=== PATIENT | female | born 1995 | race Caucasian/White ===

== ENCOUNTER 2020-07-30 13:38 | Observation (INO) ==
[2020-07-30 14:17] LABS: Basophils % 0.3 %; Eosinophils % 0.6 %; Hematocrit 40.4 % (35.3-44.9); Hemoglobin 14.8 g/dL (11.5-15.4); Immature Granulocytes % 0.3 % (0-4); Lymphocytes # 2.6 K/mcL (0.6-4.6); Lymphocytes % 35.7 %; Mean Corpuscular HGB Conc 36.6 g/dL (31.6-35.5); Mean Corpuscular Hemoglobin 31.5 pg (28.0-33.3); Mean Platelet Volume 9.5 fL (9.4-12.4); Monocytes # 0.6 K/mcL (0.0-1.3); Monocytes % 7.7 %; Platelet Count 314 K/mcL (140-400); Red Cell Distribution Width 11.6 % (11.5-14.5); Segmented Neutrophils % 55.4 %; White Blood Count 7.3 K/mcL (4.3-11.1)
[2020-07-30 14:24] LABS: Prothrombin Time 11.7 Seconds (9.4-12.1)
[2020-07-30 14:32] LABS: Alanine Aminotransferase 13 Units/L (7-52); Albumin/Globulin Ratio 1.2 (1.1-2.2); Alkaline Phosphatase 110 Units/L (34-104); Aspartate Amino Transferase 11 Units/L (13-39); BUN/Creatinine Ratio 19 (6-26); Bilirubin,Total 0.7 mg/dL (0.3-1.0); Blood Urea Nitrogen 13 mg/dL (6-20); Calcium 9.4 mg/dL (8.6-10.3); Carbon Dioxide 26 mEq/L (23-29); Chloride 96 mEq/L (98-107); Globulin 3.4 g/dL (2.4-3.5); Glucose 466 mg/dL (70-105); Osmolality,Calculated 299 (280-300); Sodium 134 mEq/L (136-145); Total Protein 7.4 g/dL (6.4-8.9); eGFR For African Americans > 60 (> 60); eGFR For Non-African Americans > 60 (> 60)
[2020-07-30 14:33] LABS: Bilirubin,Urine Negative (Negative); Blood,Urine Negative (Negative); Clarity,Urine Clear (Clear); Glucose,Urine (UA) >=1000 mg/dL (Normal); Ketones,Urine 15 mg/dL (Negative); Leukocyte Esterase,Urine Negative (Negative); Nitrite,Urine Negative (Negative); Protein,Urine Negative (Neg-Trace); Urobilinogen,Urine Normal (Normal)
[2020-07-30 14:36] LABS: Troponin I < 0.03 ng/mL (< 0.04)
[2020-07-30 14:40] LABS: Color,Urine Light-Yellow (Yellow)
[2020-07-30 14:49] LABS: Squamous Epithelial Cell,Urine Few per hpf (None-Few); WBC,Urine 0-3 per hpf (0-3)
[2020-07-30 15:30] LABS: VBG HCO3 27 mEq/L (21-27); VBG PCO2 41 mmHg (41-51); VBG PH 7.43 pH Units (7.32-7.42); VBG PO2 60 mmHg (25-50)
[2020-07-30] MEDS ORDERED: Insulin Regular, Human 100 UNIT/ML IV ONE (15:44)
[2020-07-30] MEDS: 0.9 % Sodium Chloride 1,000 ML IVC SCH ×3 (16:07→21:14)
[2020-07-30] MEDS ORDERED: Acetaminophen 325 MG TABLET PO PRN (16:28)
[2020-07-30] MEDS ORDERED: Ondansetron 4 MG/2 ML VIAL IVP PRN (16:28)
[2020-07-30] MEDS ORDERED: Naloxone 0.4 MG/ML INJ IVP PRN (16:28)
[2020-07-30] MEDS ORDERED: *HR* Dextrose 50 % in Water (Vial) 50 ML VIAL IVP PRN (16:32)
[2020-07-30] MEDS ORDERED: D5% in Water 1,000 ML IVC PRN (16:32)
[2020-07-30] MEDS ORDERED: Dextrose Gel 15 GM/37.5 ML TUBE PO PRN ×2 (16:32)
[2020-07-30] MEDS ORDERED: Perflutren Lipid Microsphere 1.3 ML in 0.9 % Sodium Chloride 8.7 ML IVP PRN (16:33)
[2020-07-30] MEDS: Albuterol 2.5 MG/3 ML NEBULIZER IH SCH ×2 (19:55→23:02)
[2020-07-30] MEDS ORDERED: Insulin LISPRO 300 UNITS/3 ML VIAL SQ SCH (21:00)
[2020-07-30] MEDS: Insulin DETEMIR 100 UNIT/ML X5UNITS SQ SCH (21:14)
[2020-07-30 21:25] LABS: Estimated Average Glucose 278 mg/dl
[2020-07-31] MEDS: Albuterol 2.5 MG/3 ML NEBULIZER IH SCH ×4 (04:12→15:54)
[2020-07-31 04:24] LABS: Basophils % 0.3 %; Eosinophils # 0.1 K/mcL (0.0-0.6); Eosinophils % 0.7 %; Hematocrit 34.3 % (35.3-44.9); Hemoglobin 12.4 g/dL (11.5-15.4); Immature Granulocytes % 0.3 % (0-4); Lymphocytes # 3.2 K/mcL (0.6-4.6); Mean Corpuscular HGB Conc 36.2 g/dL (31.6-35.5); Mean Corpuscular Hemoglobin 31.8 pg (28.0-33.3); Mean Corpuscular Volume 87.9 fL (83.0-100.0); Mean Platelet Volume 9.5 fL (9.4-12.4); Monocytes # 0.5 K/mcL (0.0-1.3); Monocytes % 7.2 %; Neutrophils # 3.6 K/mcL (1.6-8.9); Platelet Count 275 K/mcL (140-400); Red Cell Distribution Width 11.9 % (11.5-14.5); Segmented Neutrophils % 48.5 %; White Blood Count 7.5 K/mcL (4.3-11.1)
[2020-07-31 04:39] LABS: Troponin I < 0.03 ng/mL (< 0.04)
[2020-07-31 06:06] LABS: BUN/Creatinine Ratio 17 (6-26); Blood Urea Nitrogen 12 mg/dL (6-20); Calcium 8.1 mg/dL (8.6-10.3); Carbon Dioxide 25 mEq/L (23-29); Chloride 103 mEq/L (98-107); Cholesterol 204 mg/dL (< 200); Glucose 293 mg/dL (70-105); HDL Cholesterol 29 mg/dL (40-59); LDL Cholesterol,Calculated 115 mg/dL (< 100); Magnesium 1.7 mg/dL (1.6-2.6); Osmolality,Calculated 295 (280-300); Potassium 3.5 mEq/L (3.5-5.1); Sodium 137 mEq/L (136-145); Triglycerides 300 mg/dL (< 150); eGFR For African Americans > 60 (> 60); eGFR For Non-African Americans > 60 (> 60)
[2020-07-31 07:18] VITALS: BP 105/68
[2020-07-31] MEDS: 0.9 % Sodium Chloride 1,000 ML IVC SCH (08:27)
[2020-07-31] MEDS: Insulin LISPRO 300 UNITS/3 ML VIAL SQ SCH ×3 (08:27→16:49)
[2020-07-31] MEDS: Insulin DETEMIR 100 UNIT/ML X5UNITS SQ SCH (08:28)
[2020-07-31] MEDS ORDERED: FLUoxetine HCl 10 MG CAPSULE PO SCH (09:00)
[2020-07-31] MEDS ORDERED: Nitroglycerin 0.4 MG TAB.SUBL SL PRN (10:03)
[2020-07-31] MEDS ORDERED: Aspirin Enteric Coated 81 MG Tablet PO SCH (10:15)
[2020-07-31] MEDS ORDERED: Insulin LISPRO 300 UNITS/3 ML VIAL SQ SCH (17:00)
[2020-08-01] MEDS ORDERED: Insulin LISPRO 300 UNITS/3 ML VIAL SQ SCH (08:00)
== END 2020-07-31 18:27 | disposition home or self-care (01) ==
LOC: EMEROOPIK 13:38 → INPPIK 13:38
PROVIDERS: ADMIT Family Medicine; ATTEND Family Medicine